=== PATIENT | female | born 1985 | race Caucasian/White ===

== ENCOUNTER 2020-01-24 06:45 | Inpatient (IN) | payer MEDICAID ==
[2020-01-24] MEDS ORDERED: Sodium Chloride 0.9% 10 ML Syringe FLUSH PRN (07:32)
[2020-01-24] MEDS ORDERED: Ondansetron 4 MG/2 ML SDV IVPUSH PRN (07:32)
[2020-01-24] MEDS ORDERED: Nalbuphine 10 MG/ML Syringe IVPUSH PRN (07:32)
[2020-01-24] MEDS ORDERED: Calcium Carbonate 500 MG Tab.Chew PO PRN (07:32)
[2020-01-24] MEDS ORDERED: Oxytocin/Lactated Ringers 10 UNIT/1,000 ML BAG IV SCH ×2 (07:45)
[2020-01-24] MEDS: Lactated Ringers 1,000 ML IV SCH ×4 (07:53→16:36)
[2020-01-24] MEDS ORDERED: ePHEDrine 50 MG/ML SDV IVPUSH PRN (10:30)
[2020-01-24] MEDS ORDERED: fentaNYL 100 MCG/2 ML SDV EPIDUR PRN (10:30)
[2020-01-24] MEDS ORDERED: diphenhydrAMINE 50 MG/ML SDV IVPUSH PRN (10:30)
[2020-01-24] MEDS ORDERED: fentaNYL 100 MCG/2 ML SDV ONE (10:35)
--- NOTE | 2020-01-24 10:45 | PCM.PREANE ---
Preanesthetic Assessment - Anesthesia/Transfusion/Family Hx Anesthesia History: Prior Anesthesia Without Reaction Transfusion History: No Prior Transfusion(s) - Review of Systems General: No Symptoms Pulmonary: No Symptoms Cardiovascular: No Symptoms Gastrointestinal: No Symptoms Neurological: No Symptoms Other: Reports: None - Physical Assessment Vital Signs: Last Vital Signs Temp 99.4 F 01/24/20 07:24 Pulse 98 01/24/20 07:24 Resp 16 01/24/20 07:24 BP 131/85 01/24/20 07:24 Pulse Ox 98 01/24/20 07:24 Height: 1.7 m Weight: 76.204 kg ASA Class: 2 Mental Status: Alert & Oriented x3 Dentition: Reports: Normal Dentition, Holden(s), Broken Tooth/Teeth Thyro-Mental Finger Breadths: 3 Mouth Opening Finger Breadths: 3 - Lab Values: Laboratory Last Values WBC 13.15 K/mm3 (3.98-10.04) H 01/24/20 07:50 RBC 4.00 M/mm3 (3.98-5.22) 01/24/20 07:50 Hgb 12.4 gm/dl (11.2-15.7) 01/24/20 07:50 Hct 37.6 % (34.1-44.9) 01/24/20 07:50 MCV 94.0 fl (79.4-94.8) 01/24/20 07:50 MCH 31.0 pg (25.6-32.2) 01/24/20 07:50 MCHC 33.0 g/dl (32.2-35.5) 01/24/20 07:50 RDW Std Deviation 43.7 fL (36.4-46.3) 01/24/20 07:50 Plt Count 192 K/mm3 (182-369) 01/24/20 07:50 MPV 11.6 fl (9.4-12.3) 01/24/20 07:50 Neut % (Auto) 75.8 % (34.0-71.1) H 01/24/20 07:50 Lymph % (Auto) 16.0 % (19.3-51.7) L 01/24/20 07:50 [place] % (Auto) 6.3 % (4.7-12.5) 01/24/20 07:50 Eos % (Auto) 1.4 (0.7-5.8) 01/24/20 07:50 Baso % (Auto) 0.2 % (0.1-1.2) 01/24/20 07:50 Neut # (Auto) 9.97 K/mm3 (1.56-6.13) H 01/24/20 07:50 Lymph # (Auto) 2.10 K/mm3 (1.18-3.74) 01/24/20 07:50 [place] # (Auto) 0.83 K/mm3 (0.24-0.36) H 01/24/20 07:50 Eos # (Auto) 0.18 K/mm3 (0.04-0.36) 01/24/20 07:50 Baso # (Auto) 0.03 K/mm3 (0.01-0.08) 01/24/20 07:50 COVID-19 (NOIRS) Negative (NEGATIVE) 01/24/20 Unknown Blood Type O POSITIVE 01/24/20 07:50 Gel Antibody Screen Negative 01/24/20 07:50 - Allergies Allergies/Adverse Reactions: Allergies Allergy/AdvReac Type Severity Reaction Status Date / Time No Known Allergies Allergy Verified 01/21/20 21:21 - Acknowledgements Anesthesia Type Planned: Epidural Pt an Appropriate Candidate for the Planned Anesthesia: Yes Alternatives and Risks of Anesthesia Discussed w Pt/Guardian: Yes Pt/Guardian Understands and Agrees with Anesthesia Plan: Yes PreAnesthesia Questionnaire - Past Health History Medical/Surgical History: Denies Medical/Surgical History Respiratory History: Reports: Asthma Psychiatric History: Reports: Depression - Past Surgical History Respiratory Surgical History: Reports: None - SUBSTANCE USE Smoking Status *Q: Former Smoker Tobacco Use Within Last Twelve Months: Cigarettes Second Hand Smoke Exposure: No Recreational Drug Use History: Yes Recreational Drug Type: Reports: Marijuana/Hashish - HOME MEDS Home Medications: Home Meds Loratadine [Claritin] 10 mg PO DAILY 01/21/20 [History] Montelukast [Singulair] 10 mg PO DAILY 01/21/20 [History] Omeprazole Magnesium [Prilosec] 2.5 mg PO BID 01/21/20 [History] Vits #93/Iron Fum/FA [ Formula Tablet] 1 each PO 01/21/20 [History] - CURRENT (IN HOUSE) MEDS Current Meds: Current Medications Calcium Carbonate/Glycine (Tums) 1,000 mg PO Q2H PRN PRN Reason: Indigestion Diphenhydramine HCl (Benadryl) 25 mg IVPUSH Q6H PRN PRN Reason: pruritis Ephedrine Sulfate (Ephedrine Sulfate) 5 mg IVPUSH ASDIRECTED PRN PRN Reason: Hypotension Fentanyl (Sublimaze) 100 mcg EPIDUR Q3H PRN PRN Reason: Pain Fentanyl/Bupivacaine HCl (Fentanyl/Bupivacaine/Ns 2 Mcg-0.125% 100 Ml) 100 ml EPIDUR ASDIRECTED PRN PRN Reason: Pain Oxytocin/Lactated Ringer's (Pitocin In Lr 10 Units/1,000 Ml) 10 unit in 1,000 mls @ 12 mls/hr IV TITRATE KISHAN; Protocol Last Titration: 01/24/20 10:20 Dose: 2 munits/min, 12 mls/hr Documented by: Oxytocin/Lactated Ringer's (Pitocin In Lr 10 Units/1,000 Ml) 10 unit in 1,000 mls @ 500 mls/hr IV .CONTINUOUS KISHAN Lactated Ringer's (Ringers, Lactated) 1,000 mls @ 100 mls/hr IV ASDIRECTED KISHAN Last Admin: 01/24/20 07:53 Dose: 100 mls/hr Documented by: Nalbuphine HCl (Nubain) 10 mg IVPUSH Q2H PRN PRN Reason: Pain Ondansetron HCl (Zofran) 4 mg IVPUSH Q4H PRN PRN Reason: Nausea/Vomiting Sodium Chloride (Saline Flush) 10 ml FLUSH ASDIRECTED PRN PRN Reason: Keep Vein Open
[2020-01-24] MEDS: Bupivacaine/fentaNYL/NS 100 ML Bag EPIDUR PRN ×2 (10:46→18:26)
--- NOTE | 2020-01-24 11:12 | PCM.LDHP ---
<Jaz Moore R - Last Filed: 01/24/20 20:29> L&D History of Present Illness - General Date of Service: 01/24/20 Admit Problem/Dx: Admission Diagnosis/Problem Admission Diagnosis/Problem Source of Information: Patient History Limitations: Reports: No Limitations - History of Present Illness Introduction:: Oneal is a 34-year-old 1 para 0000 female who is admitted for induction of labor on the morning of 01/24/2020 at 40-1/7 weeks gestational age with an MELISSA of 01/23/2020. Presently, she is 2 cm, 80% effaced, -3 station, soft, baby in vertex presentation. A balloon catheter was placed, and patient immediately felt some cramping. heart tones are reassuring. There are good accelerations, moderate variability, and no decelerations. Patient is now having contractions every 3-5 minutes with minimal pain. She desires an epidural as labor progresses. 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 Menarche began at age 15. No prior . Her last menstrual period was 04/05/2019, and her cycles occurr ed in regular 28 day intervals. supported by early ultrasound on 06/07/2019 at 7-1/7 weeks' gestational age and supported by a second ultrasound on 07/07/2019 at 11-5/7 weeks' gestational age. No control used at time of conception. Previously, she used Depo-Provera and discontinued this 1-2 months prior to becoming . course: Patient was first seen in [place] at 11-3/7 weeks gestational age. She transferred care to [facility] on 11/14/2019. Patient's weight gain during the was from 134.6 pounds to 168.0 pounds for a total of 33.4 pounds. Her fundal height growth has been consistent with gestational age throughout . Risk factors for include: maternal tobacco use during the first trimester. Laboratory testing: Blood type is O+ with negative antibody screening. Initial labs showed a hemoglobin of 12.8 g/dL with platelets of 192,000. She is rubella immune. RPR is nonreactive. Urine culture was positive for mixed dolly of > 100,000 CFU/mL. Hepatitis B surface antigen and HIV assays were both negative. GC tests were both negative. Her 1 hour GTT was 173. Fasting blood glucose was 86; 1 hour: 156; 2 hour: 136; 3 hour: 132. Second trimester labs revealed hemoglobin of 11.8 g/dL and platelets of 186,000. Her group B strep screen was negative. Allergies: 1. No known drug allergies. Medications: 1. Montelukast Sodium 10 mg PO daily. 2. Albuterol Sulfate HFA 108 mcg/act inhalation aerosol solution 1-2 puffs Q4-6H PRN 3. vitamin 1 mg PO daily. 4. Loratadine 10 mg PO daily. 5. Omeprazole 2.5 mg PO BID. Past medical history: 1. Asthma Past surgical history: 1. None Family history: Mother is from lung and liver disease. She had a history of tobacco and alcohol use. Father is alive and has adult-onset diabetes, currently on insulin. He has a history of kidney cancer diagnosed at age 59. Her 1/2 brother is alive and well. Her sister is alive and currently struggles with alcoholism. Maternal grandmother is alive and well. Maternal grandfather is . He has a history of alcoholism. Paternal grandmother is alive and well. Paternal grandfather is alive. He has a history of stroke and CHF. He has a history of MRSA infection at age 79. No known family history of bleeding/blood clotting disorders, anesthesia related issues, or -related issues. Social history: Patient is single. Her significant other is Rosa Hyatt. She currently does not use any alcohol, tobacco, or illicit substances. She smoked 1 pack per day prior to . She weaned herself and quit during the course of . Quit date: 06/2019. She admitted to marijuana use to help with morning sickness early in the , but no longer uses it. She works at [employer]. She has some college education. She recently moved to [place], [place]. - Related Data Allergies/Adverse Reactions: Allergies Allergy/AdvReac Type Severity Reaction Status Date / Time No Known Allergies Allergy Verified 01/21/20 21:21 Home Medications: Home Meds Loratadine [Claritin] 10 mg PO DAILY 01/21/20 [History] Montelukast [Singulair] 10 mg PO DAILY 01/21/20 [History] Omeprazole Magnesium [Prilosec] 2.5 mg PO BID 01/21/20 [History] Vits #93/Iron Fum/FA [ Formula Tablet] 1 each PO 01/21/20 [History] Past Medical History - Past Health History Medical/Surgical History: Denies Medical/Surgical History Respiratory History: Reports: Asthma Psychiatric History: Reports: Depression - Past Surgical History Respiratory Surgical History: Reports: None Social & Family History - Family History Family Medical History: Noncontributory - Tobacco Use Smoking Status *Q: Former Smoker Years of Tobacco use: 15 Packs/Tins Daily: 1 Used Tobacco, but Quit: Yes Month/Year Tobacco Last Used: JUN 2018 Second Hand Smoke Exposure: No - Caffeine Use Caffeine Use: Reports: None - Alcohol Use Alcohol Use History: No - Recreational Drug Use Recreational Drug Use: Yes Drug Use in Last 12 Months: Yes Recreational Drug Type: Reports: Marijuana/Hashish Recreational Drug Use Frequency: Rarely H&P Review of Systems - Review of Systems: Review Of Systems: Comprehensive ROS is negative, except as noted in HPI. L&D Exam - Vital Signs Vital Signs: Last Vital Signs Temp 99.4 F 01/24/20 07:24 Pulse 98 01/24/20 07:24 Resp 16 01/24/20 07:24 BP 131/85 01/24/20 07:24 Pulse Ox 98 01/24/20 07:24 Weight: 76.204 kg - OB Specific Contraction Intensity: Mild Heart Tones: Present Heart Rate (FHR) Variability: Moderate (6-25 bmp) Presentation: Vertex - Exam Quality Assessment: Urinary Catheter General: Alert, Oriented, Cooperative HEENT: Conjunctiva Clear, EOMI, Mucosa Moist & [place] Neck: Supple, Trachea Midline Lungs: Clear to Auscultation, Normal Respiratory Effort Cardiovascular: Regular Rate, Regular Rhythm GI/Abdominal Exam: Soft, Non-Tender Genitourinary: Cervical dilitation, Cervical discharge. No: Cervix motion tenderness Back Exam: Normal Inspection Extremities: Normal Inspection, No Pedal Edema, Normal Capillary Refill Skin: Warm, Dry, Intact Psychiatric: Alert, Normal Affect - Patient Data Lab Results Last 24 hrs: Laboratory Results - last 24 hr 01/24/20 01/24/20 01/24/20 Range/Units 07:50 07:50 Unknown WBC 13.15 H (3.98-10.04) K/mm3 RBC 4.00 (3.98-5.22) M/mm3 Hgb 12.4 (11.2-15.7) gm/dl Hct 37.6 (34.1-44.9) % MCV 94.0 (79.4-94.8) fl MCH 31.0 (25.6-32.2) pg MCHC 33.0 (32.2-35.5) g/dl RDW Std Deviation 43.7 (36.4-46.3) fL Plt Count 192 (182-369) K/mm3 MPV 11.6 (9.4-12.3) fl Neut % (Auto) 75.8 H (34.0-71.1) % Lymph % (Auto) 16.0 L (19.3-51.7) % Early % (Auto) 6.3 (4.7-12.5) % Eos % (Auto) 1.4 (0.7-5.8) Baso % (Auto) 0.2 (0.1-1.2) % Neut # (Auto) 9.97 H (1.56-6.13) K/mm3 Lymph # (Auto) 2.10 (1.18-3.74) K/mm3 Early # (Auto) 0.83 H (0.24-0.36) K/mm3 Eos # (Auto) 0.18 (0.04-0.36) K/mm3 Baso # (Auto) 0.03 (0.01-0.08) K/mm3 COVID-19 (NORIS) Negative (NEGATIVE) Blood Type O POSITIVE Gel Antibody Screen Negative Result Diagrams: 01/24/20 07:50 Orders Last 24hrs: Active Orders 24 hr Category Date Time Status Activity as Tolerated [RC] PFP Care 01/24/20 07:32 Active Communication Order [RC] ASDIRECTED Care 01/24/20 07:32 Active Heart Tones [RC] ASDIRECTED Care 01/24/20 07:33 Active Notify Provider [RC] PFP Care 01/24/20 07:32 Active Notify Provider [RC] PRN Care 01/24/20 07:32 Active Peripheral IV Care [RC] . DIRECTED Care 01/24/20 07:33 Active Vital Signs [RC] PER UNIT ROUTINE Care 01/24/20 07:32 Active Regular Diet [DIET] Diet 01/24/20 Lunch Active DRUG SCREEN, URINE [URCHEM] Stat Lab 01/24/20 10:05 Ordered PATIENT RETYPE [BBK] Routine Lab 01/24/20 09:41 Ordered RAPID PLASMA REAGIN,RPR [CHEM] Routine Lab 01/24/20 07:50 Received Calcium Carbonate [Tums] Med 01/24/20 07:32 Active 1,000 mg PO Q2H PRN Lactated Ringers [Ringers, Lactated] 1,000 ml Med 01/24/20 07:45 Active IV ASDIRECTED Nalbuphine [Nubain] Med 01/24/20 07:32 Active 10 mg IVPUSH Q2H PRN Ondansetron [Zofran] Med 01/24/20 07:32 Active 4 mg IVPUSH Q4H PRN Oxytocin/Lactated Ringers [Pitocin in LR 10 Units/1,000 Med 01/24/20 07:45 Active ML] 10 unit in 1,000 ml IV .CONTINUOUS Oxytocin/Lactated Ringers [Pitocin in LR 10 Units/1,000 Med 01/24/20 07:45 Active ML] 10 unit in 1,000 ml IV TITRATE Sodium Chloride 0.9% [Saline Flush] Med 01/24/20 07:32 Active 10 ml FLUSH ASDIRECTED PRN Electronic Heart Tones Ext w TOCO [WOMSER] Oth 01/24/20 07:32 Ordered Routine Electronic Heart Tones Internal [WOMSER] Per Unit Oth 01/24/20 07:32 Ordered Routine Peripheral IV Insertion Adult [OM.PC] Routine Oth 01/24/20 07:32 Ordered Resuscitation Status Routine Resus Stat 01/24/20 07:32 Ordered Medication Orders Calcium Carbonate/Glycine (Tums) 1,000 mg PO Q2H PRN PRN Reason: Indigestion Oxytocin/Lactated Ringer's (Pitocin In Lr 10 Units/1,000 Ml) 10 unit in 1,000 mls @ 12 mls/hr IV TITRATE KISHAN; Protocol Last Titration: 01/24/20 10:20 Dose: 2 munits/min, 12 mls/hr Documented by: Titration: 01/24/20 08:30 Dose: 4 munits/min, 24 mls/hr Documented by: Admin: 01/24/20 07:53 Dose: 2 munits/min, 12 mls/hr Documented by: KARTHIKEYAN Oxytocin/Lactated Ringer's (Pitocin In Lr 10 Units/1,000 Ml) 10 unit in 1,000 mls @ 500 mls/hr IV .CONTINUOUS KISHAN Lactated Ringer's (Ringers, Lactated) 1,000 mls @ 100 mls/hr IV ASDIRECTED KISHAN Last Admin: 01/24/20 07:53 Dose: 100 mls/hr Documented by: KARTHIKEYAN Nalbuphine HCl (Nubain) 10 mg IVPUSH Q2H PRN PRN Reason: Pain Ondansetron HCl (Zofran) 4 mg IVPUSH Q4H PRN PRN Reason: Nausea/Vomiting Sodium Chloride (Saline Flush) 10 ml FLUSH ASDIRECTED PRN PRN Reason: Keep Vein Open Assessment/Plan Comment:: Assessment: 1. 34-year-old 1 para 0000 female at 40-1/7 weeks' gestational age with an MELISSA of 01/23/2020 admitted for induction of labor. 2. Risk factors for include history of smoking during . 3. GBS negative. 4. Rubella immune. 5. RPR nonreactive. 6. Patient is considering epidural as labor progresses. Plan: 1. Balloon catheter placement is discussed with patient, including risks and benefits. She wishes to proceed. 2. Regular diet. 3. Epidural if patient desires. 4. Routine labor care. 5. RPR and CBC upon admission. 6. Anticipate normal spontaneous vaginal delivery. <Dio Gardner - Last Filed: 01/25/20 07:05> L&D History of Present Illness - General Admit Problem/Dx: Admission Diagnosis/Problem Admission Diagnosis/Problem Normal H&P Review of Systems - Review of Systems: Review Of Systems: See Below L&D Exam - Exam Exam: See Below - Vital Signs Vital Signs: Last Vital Signs Temp 36.7 C 01/25/20 03:32 Pulse 78 01/25/20 03:32 Resp 15 01/25/20 03:32 BP 112/60 01/25/20 03:32 Pulse Ox 97 01/25/20 03:32 - Patient Data Lab Results Last 24 hrs: Laboratory Results - last 24 hr 01/24/20 01/24/20 01/24/20 Range/Units 07:50 07:50 07:50 WBC 13.15 H (3.98-10.04) K/mm3 RBC 4.00 (3.98-5.22) M/mm3 Hgb 12.4 (11.2-15.7) gm/dl Hct 37.6 (34.1-44.9) % MCV 94.0 (79.4-94.8) fl MCH 31.0 (25.6-32.2) pg MCHC 33.0 (32.2-35.5) g/dl RDW Std Deviation 43.7 (36.4-46.3) fL Plt Count 192 (182-369) K/mm3 MPV 11.6 (9.4-12.3) fl Neut % (Auto) 75.8 H (34.0-71.1) % Lymph % (Auto) 16.0 L (19.3-51.7) % Early % (Auto) 6.3 (4.7-12.5) % Eos % (Auto) 1.4 (0.7-5.8) Baso % (Auto) 0.2 (0.1-1.2) % Neut # (Auto) 9.97 H (1.56-6.13) K/mm3 Lymph # (Auto) 2.10 (1.18-3.74) K/mm3 Early # (Auto) 0.83 H (0.24-0.36) K/mm3 Eos # (Auto) 0.18 (0.04-0.36) K/mm3 Baso # (Auto) 0.03 (0.01-0.08) K/mm3 Urine Opiates Screen (JBZDXP=587) Ur Buprenorphine Scrn (CUTOFF=10) Ur Oxycodone Screen (VUM8IT=830) Urine Methadone Screen (YRHRIK=240) Ur Propoxyphene Screen (XBDBQU=568) Ur Barbiturates Screen (YDVHGJ=551) Ur Tricyclics Screen (IYMBGJ=336) Ur Phencyclidine Scrn (CUTOFF=25) Ur Amphetamine Screen (KYRQFG=158) U Methamphetamines Scrn (CHCCES=331) U Benzodiazepines Scrn (BRIZOL=499) U Cocaine Metab Screen (SLVYCH=773) U Marijuana (THC) Screen (CUTOFF=50) RPR Non-reactive (NONREACTIVE) COVID-19 (NORIS) (NEGATIVE) Blood Type O POSITIVE Gel Antibody Screen Negative 01/24/20 01/24/20 Range/Units 13:30 Unknown WBC (3.98-10.04) K/mm3 RBC (3.98-5.22) M/mm3 Hgb (11.2-15.7) gm/dl Hct (34.1-44.9) % MCV (79.4-94.8) fl MCH (25.6-32.2) pg MCHC (32.2-35.5) g/dl RDW Std Deviation (36.4-46.3) fL Plt Count (182-369) K/mm3 MPV (9.4-12.3) fl Neut % (Auto) (34.0-71.1) % Lymph % (Auto) (19.3-51.7) % Early % (Auto) (4.7-12.5) % Eos % (Auto) (0.7-5.8) Baso % (Auto) (0.1-1.2) % Neut # (Auto) (1.56-6.13) K/mm3 Lymph # (Auto) (1.18-3.74) K/mm3 Early # (Auto) (0.24-0.36) K/mm3 Eos # (Auto) (0.04-0.36) K/mm3 Baso # (Auto) (0.01-0.08) K/mm3 Urine Opiates Screen Negative (DOERZT=296) Ur Buprenorphine Scrn Negative (CUTOFF=10) Ur Oxycodone Screen Negative (PLZ6XP=846) Urine Methadone Screen Negative (KTKEYG=166) Ur Propoxyphene Screen Negative (ATQZSX=301) Ur Barbiturates Screen Negative (PYCHVD=513) Ur Tricyclics Screen Negative (UFXXAL=015) Ur Phencyclidine Scrn Negative (CUTOFF=25) Ur Amphetamine Screen Negative (CLPUXS=461) U Methamphetamines Scrn Negative (SCNTTH=174) U Benzodiazepines Scrn Negative (JUWXEP=757) U Cocaine Metab Screen Negative (ZHGRFY=108) U Marijuana (THC) Screen Negative (CUTOFF=50) RPR (NONREACTIVE) COVID-19 (NORIS) Negative (NEGATIVE) Blood Type Gel Antibody Screen Result Diagrams: 01/24/20 07:50 Problem List Initiated/Reviewed/Updated: Yes Orders Last 24hrs: Active Orders 24 hr Category Date Time Status Activity as Tolerated [RC] PER UNIT ROUTINE Care 01/24/20 20:08 Active Vital Signs [RC] 03,09,15,21 Care 01/24/20 20:08 Active Regular Diet [DIET] Diet 01/24/20 Dinner Active Acetaminophen [Tylenol] Med 01/24/20 20:08 Active 650 mg PO Q4H PRN Benzocaine/Menthol [Dermoplast Pain Relief [place]] Med 01/24/20 20:08 Active See Dose Instructions TOP ASDIRECTED PRN Docusate Sodium [Colace] Med 01/24/20 20:08 Active 100 mg PO BID PRN Ibuprofen [Motrin] Med 01/24/20 20:08 Active 600 mg PO Q4H PRN Vit with Ca/FA/Iron [ Plus Iron] Med 01/25/20 09:00 Active 1 each PO DAILY witch Rajesh [Tucks] Med 01/24/20 20:08 Active 1 pad TOP ASDIRECTED PRN Assess Lochia [WOMSER] Per Unit Routine Oth 01/24/20 20:08 Ordered Assess Uterine Involution [WOMSER] Per Unit Routine Oth 01/24/20 20:08 Ordered Breast Pump [WOMSER] Per Unit Routine Oth 01/24/20 20:08 Ordered Heat Therapy [OM.PC] PRN Oth 01/24/20 20:15 Ordered Heat Therapy [OM.PC] PRN Oth 01/25/20 20:15 Ordered Ice Therapy [OM.PC] Per Unit Routine Oth 01/24/20 20:08 Ordered Medication Administration Instruction [OM.PC] Routine Oth 01/24/20 20:08 Ordered Perineal Care [OM.PC] Per Unit Routine Oth 01/24/20 20:08 Ordered Sitz Bath [OM.PC] Per Unit Routine Oth 01/24/20 20:08 Ordered Resuscitation Status Routine Resus Stat 01/24/20 07:32 Ordered Medication Orders Acetaminophen (Tylenol) 650 mg PO Q4H PRN PRN Reason: mild pain or fever Benzocaine/Menthol (Dermoplast Pain Relief [place]) 0 gm TOP ASDIRECTED PRN PRN Reason: Perineal Comfort Measure Last Admin: 01/24/20 21:05 Dose: 1 can Documented by: SPILMEG Docusate Sodium (Colace) 100 mg PO BID PRN PRN Reason: Constipation Last Admin: 01/24/20 21:05 Dose: 100 mg Documented by: OSWALDO Ibuprofen (Motrin) 600 mg PO Q4H PRN PRN Reason: Mild pain or fever Last Admin: 01/25/20 07:01 Dose: 600 mg Documented by: Admin: 01/24/20 21:05 Dose: 600 mg Documented by: OSWALDO Prenat Multivit/Apison/Iron/Folic Ac ( Plus Iron) 1 each PO DAILY KISHAN Chapni (Tucks) 1 pad TOP ASDIRECTED PRN PRN Reason: Perineal Comfort Measure Last Admin: 01/24/20 21:05 Dose: 1 canister Documented by: OSWALDO
[2020-01-24] MEDS ORDERED: Docusate Sodium 100 MG Cap PO PRN (20:08)
[2020-01-24] MEDS ORDERED: Benzocaine/Menthol 20%-0.5% Spray 56 GM Canister TOP PRN (20:08)
[2020-01-24] MEDS ORDERED: Acetaminophen 325 MG Tab PO PRN (20:08)
--- NOTE | 2020-01-24 20:13 | PCM.SN.2 ---
- Free Text/Narrative Note: Delivery note: Oneal is a 34-year-old 1 para 1001 female who is admitted for induction of labor on the morning of 01/24/2020 at 40-1/7 weeks gestational age with an MELISSA of 01/23/2020. Presently, she is 2 cm, 80% effaced, -3 station, soft, baby in vertex presentation. A balloon catheter was placed, and patient immediately felt some cramping. heart tones are reassuring. Patient underwent Pitocin induction of labor and Cornejo balloon cervical ripening. The Cornejo bulb came out after short period time and patient dilated to 5 centimeters at which time artificial rupture membranes was undertaken with resulting clear amniotic fluid. Patient had an epidural for labor analgesia. She progressed to complete cervical dilation by approximately 1730 hrs. She pushed for approximately 1-3/4 hours at which time she delivered a viable, joseph, female named Bharati Winter. She delivered in a direct occiput anterior position with vacuum extraction delivery with one contractions worth of pushing. Midline episiotomy was made. The baby weighed 3210 g (7 pounds 1.2 ounces), had length of 22.0 inches and A pgars of 8 and 9. No pop offs are noted. The baby was completely delivered and placed on mom's abdomen. Nose and mouth were bulb suctioned and the baby was dried with a warm blanket. Pitocin was increased to 500 mL an hour per protocol to facilitate increase in uterine tone and decrease likelihood of bleeding. The umbilical cord was allowed to pulsate for approximately 2-3 minutes after which time it was clamped 2 and cut by the baby's father. The umbilical cord blood was obtained. The midline episiotomy was then repaired with 3-0 Monocryl in a routine fashion using labor epidural analgesia for perineal suturing anesthesia. The placenta delivered in a Russ presentation, appeared intact and complete and was discarded per patient desire. The umbilical cord had 3 vessels. Estimated blood loss was 200 mL. Patient plans to breast-feed. Condition: Good
[2020-01-24] MEDS: Witch Hazel Medicated Pads 40/Jar TOP PRN (21:05)
[2020-01-24] MEDS: Ibuprofen 600 MG Tab PO PRN (21:05)
[2020-01-25] MEDS ORDERED: Lidocaine 1.5% with EPINEPHrine 1:200,000 5 ML Amp ONE
[2020-01-25] MEDS: Ibuprofen 600 MG Tab PO PRN ×3 (07:01→19:58)
--- NOTE | 2020-01-25 07:11 | PCM.SN.2 ---
- Free Text/Narrative Note: note: Patient is doing well in the period. Minimal lochia, voiding well, ambulated without problems. Nursing without concerns. Patient is afebrile, vital signs are stable Abdomen is flat, soft, uterus is below the umbilicus and is firm and nontender. Legs are nontender. Assessment: recovery going well. Plan: Routine care. Patient be discharged home within the next 24-48 hours.
[2020-01-25] MEDS ORDERED: Montelukast 10 MG Tab PO SCH (09:00)
[2020-01-25] MEDS ORDERED: Prenatal Multivitamin with Calcium/Folic Acid/Iron Tab PO SCH (09:00)
[2020-01-25] MEDS: Witch Hazel Medicated Pads 40/Jar TOP PRN (12:27)
--- NOTE | 2020-01-25 17:08 | PCM.DCSUM1 ---
Discharge Summary - Hospital Course Free Text/Narrative:: Oneal is a 34-year-old 1 para 1001 female who is admitted for induction of labor on the morning of 01/24/2020 at 40-1/7 weeks gestational age with an MELISSA of 01/23/2020. Presently, she is 2 cm, 80% effaced, -3 station, soft, baby in vertex presentation. A balloon catheter was placed, and patient immediately felt some cramping. heart tones are reassuring. Patient underwent Pitocin induction of labor and Cornejo balloon cervical ripening. The Cornejo bulb came out after short period time and patient dilated to 5 centimeters at which time artificial rupture membranes was undertaken with resulting clear amniotic fluid. Patient had an epidural for labor analgesia. She progressed to complete cervical dilation by approximately 1730 hrs. She pushed for approximately 1-3/4 hours at which time she delivered a viable, joseph, female named Bhaarti Winter. She delivered in a direct occiput anterior position with vacuum extraction delivery with one contractions worth of pushing. Midline episiotomy was made. The baby weighed 3210 g (7 pounds 1.2 ounces), had length of 22.0 inches and Apgars of 8 and 9. No pop offs are noted. The baby was completely delivered and placed on mom's abdomen. Nose and mouth were bulb suctioned and the baby was dried with a warm blanket. Pitocin was increased to 500 mL an hour per protocol to facilitate increase in uterine tone and decrease likelihood of bleeding. The umbilical cord was allowed to pulsate for approximately 2-3 minutes after which time it was clamped 2 and cut by the baby's father. The umbilical cord blood was obtained. The midline episiotomy was then repaired with 3-0 Monocryl in a routine fashion using labor epidural analgesia for perineal suturing anesthesia. The placenta delivered in a Russ presentation, appeared intact and complete and was discarded per patient desire. The umbilical cord had 3 vessels. Estimated blood loss was 200 mL. Patient plans to breast-feed. Patient doing well. She desires discharge home. Condition: Good Diagnosis: Stroke: No - Discharge Data Discharge Date: 01/25/20 Discharge Disposition: Home, Self-Care 01 Condition: Good - Referral to Home Health Primary Care Physician: Dio Gardner MD - Patient Instructions Diet: Regular Diet as Tolerated Activity: As Tolerated (No intercourse or tampons until bleeding stops) Driving: May Drive Today Showering/Bathing: May Shower Showering/Bathing, Other: May take a bath Notify Provider of: Fever, Increased Pain, Swelling and Redness, Nausea and/or Vomiting - Discharge Plan Home Medications: Home Meds Loratadine [Claritin] 10 mg PO DAILY 01/21/20 [History] Montelukast [Singulair] 10 mg PO DAILY 01/21/20 [History] Omeprazole Magnesium [Prilosec] 2.5 mg PO BID 01/21/20 [History] Vits #93/Iron Fum/FA [ Formula Tablet] 1 each PO 01/21/20 [History] Acetaminophen [Tylenol] 650 mg PO Q4H PRN tablet 01/25/20 [Rx] Ibuprofen [Motrin] 600 mg PO Q4H PRN tablet 01/25/20 [Rx] Referrals: Dio Gardner MD [Primary Care Provider] - (Return to clinic[facility]. [facility] weeks.) - Discharge Summary/Plan Comment DC Time >30 min.: No Discharge Summary/Plan Comment: Discharge instructions: 1. Discharge home 2. Diet, activity and follow-up discussed with patient. Recommend nursing diet with increased calories and calcium. 3. Precautions given concern increased pain, bleeding, temperature, signs/symptoms of DVT/PE. 4. Medications per home medication was printed, discussed with and given to the patient. 5. Return to clinic-Dr. Gardner[facility] in 2 weeks. Diagnosis: Term -delivered Condition: Good - Patient Data Vitals - Most Recent: Last Vital Signs Temp 36.8 C 01/25/20 14:09 Pulse 92 01/25/20 14:09 Resp 16 01/25/20 14:09 BP 119/65 01/25/20 14:09 Pulse Ox 99 01/25/20 14:09 Weight - Most Recent: 76.204 kg I&O - Last 24 hours: Intake & Output 01/25/20 01/25/20 01/25/20 06:59 14:59 22:59 Intake Total 120 Balance 120 Lab Results - Last 24 hrs: Laboratory Results - last 24 hr 01/24/20 Range/Units 07:50 RPR Non-reactive (NONREACTIVE) Med Orders - Current: Current Medications Acetaminophen (Tylenol) 650 mg PO Q4H PRN PRN Reason: mild pain or fever Benzocaine/Menthol (Dermoplast Pain Relief [place]) 0 gm TOP ASDIRECTED PRN PRN Reason: Perineal Comfort Measure Last Admin: 01/24/20 21:05 Dose: 1 can Documented by: Docusate Sodium (Colace) 100 mg PO BID PRN PRN Reason: Constipation Last Admin: 01/24/20 21:05 Dose: 100 mg Documented by: Ibuprofen (Motrin) 600 mg PO Q4H PRN PRN Reason: Mild pain or fever Last Admin: 01/25/20 12:28 Dose: 600 mg Documented by: Prenat Multivit/[employer]/Iron/Folic Ac ( Plus Iron) 1 each PO DAILY KISHAN Last Admin: 01/25/20 08:30 Dose: 1 each Documented by: Frances Chapin ([facility]) 1 pad TOP ASDIRECTED PRN PRN Reason: Perineal Comfort Measure Last Admin: 01/25/20 12:27 Dose: 1 canister Documented by: Discontinued Medications Calcium Carbonate/Glycine (Tums) 1,000 mg PO Q2H PRN PRN Reason: Indigestion Diphenhydramine HCl (Benadryl) 25 mg IVPUSH Q6H PRN PRN Reason: pruritis Ephedrine Sulfate (Ephedrine Sulfate) 5 mg IVPUSH ASDIRECTED PRN PRN Reason: Hypotension Fentanyl (Sublimaze) 100 mcg EPIDUR Q3H PRN PRN Reason: Pain Last Admin: 01/24/20 10:46 Dose: 100 mcg Documented by: Fentanyl (Sublimaze) Confirm Administered Dose 100 mcg .ROUTE .STK-MED ONE Stop: 01/24/20 10:36 Last Admin: 01/24/20 11:53 Dose: Not Given Documented by: Fentanyl/Bupivacaine HCl (Fentanyl/Bupivacaine/Ns 2 Mcg-0.125% 100 Ml) 100 ml EPIDUR ASDIRECTED PRN PRN Reason: Pain Last Admin: 01/24/20 18:26 Dose: 100 ml Documented by: Oxytocin/Lactated Ringer's (Pitocin In Lr 10 Units/1,000 Ml) 10 unit in 1,000 mls @ 12 mls/hr IV TITRATE KISHAN; Protocol Last Titration: 01/24/20 17:46 Dose: 12 munits/min, 72 mls/hr Documented by: Oxytocin/Lactated Ringer's (Pitocin In Lr 10 Units/1,000 Ml) 10 unit in 1,000 mls @ 500 mls/hr IV .CONTINUOUS KISHAN Last Admin: 01/24/20 20:04 Dose: 500 mls/hr Documented by: Lactated Ringer's (Ringers, Lactated) 1,000 mls @ 100 mls/hr IV ASDIRECTED KISHAN Last Admin: 01/24/20 16:36 Dose: 100 mls/hr Documented by: Lidocaine/Epinephrine (Xylocaine-Mpf 1.5% W/Epinephrine 1:200,000) 5 ml .ROUTE .[facility] ONE Stop: 01/25/20 00:01 Montelukast Sodium (Singulair) 10 mg PO DAILY KISHAN Nalbuphine HCl (Nubain) 10 mg IVPUSH Q2H PRN PRN Reason: Pain Ondansetron HCl (Zofran) 4 mg IVPUSH Q4H PRN PRN Reason: Nausea/Vomiting Sodium Chloride (Saline Flush) 10 ml FLUSH ASDIRECTED PRN PRN Reason: Keep Vein Open
[2020-01-26] MEDS: Ibuprofen 600 MG Tab PO PRN (03:52)
== END 2020-01-26 07:55 | disposition home or self-care (01) | DRG 807 ==
LOC: JD.OB 06:45 → OBSVTOIN 19:16 → JD.OB 19:17
PROVIDERS: ADMIT Obstetrics & Gynecology; ATTEND Obstetrics & Gynecology
PROC: 10907ZC Drainage of Amniotic Fluid, Therapeutic from Products of Conception, Via Natural or Artificial Opening (ICD-10-PCS; principal; 2020-01-24)
PROC: 10D07Z6 Extraction of Products of Conception, Vacuum, Via Natural or Artificial Opening (ICD-10-PCS; 2020-01-24)
PROC: 0W8NXZZ Division of Female Perineum, External Approach (ICD-10-PCS; 2020-01-24)
PROC: 0U7C7ZZ Dilation of Cervix, Via Natural or Artificial Opening (ICD-10-PCS; 2020-01-24)
PROC: 3E0R3BZ Introduction of Anesthetic Agent into Spinal Canal, Percutaneous Approach (ICD-10-PCS; 2020-01-24)
PROC: 00HU33Z Insertion of Infusion Device into Spinal Canal, Percutaneous Approach (ICD-10-PCS; 2020-01-24)
DX: O99.52 Diseases of the respiratory system complicating childbirth (principal); Z37.0 Single live birth; J45.909 Unspecified asthma, uncomplicated; O99.344 Other mental disorders complicating childbirth; F32.9 Major depressive disorder, single episode, unspecified; Z87.891 Personal history of nicotine dependence; Z3A.40 40 weeks gestation of pregnancy; Z11.59 Encounter for screening for other viral diseases
CPT/HCPCS: 01967; 36415; 51703; 59025; 59200; 59409; 80306; 85025; 86592; 86850; 86900; 86901; A9270-GY; J2590; J3010; J7120; U0002